=== PATIENT | male | born 1995 | race Caucasian/White ===

== ENCOUNTER 2017-02-09 20:12 | Inpatient (IN) ==
[2017-02-09] MEDS ORDERED: NORCURON IV ONE (20:40)
[2017-02-09 20:44] LABS: MANUAL DIFF NEEDED? NO
[2017-02-09 20:46] LABS: BASO% 0.7 % (0.0-0.8); EOS# 0.47 X1000 (0.0-0.7); EOS% 3.1 % (0.0-10.0); HEMATOCRIT 43.5 % (42.0-52.0); HEMOGLOBIN 15.1 g/dL (14.0-18.0); IMM GRAN# 0.13 X1000 (0.0-0.04); IMM GRAN% 0.9 % (0.0-0.5); LYMPH# 6.92 X1000 (1.2-3.4); LYMPH% 45.6 % (20.5-51.1); MCH 32.2 PG (27-31); MCHC 34.7 g/dL (33-37); MCV 92.8 FL (81-99); MONO# 1.16 X1000 (0.11-0.59); MONO% 7.6 % (1.7-9.3); NEUT% 42.1 % (42.2-75.2); PLT 235 X1000 (130-400); RBC 4.69 XMIL (4.7-6.1)
[2017-02-09] MEDS ORDERED: STERILE WATER INJ. ONE (20:52)
[2017-02-09] MEDS ORDERED: NS 1,000 ML IV ONE ×3 (20:58→22:07)
[2017-02-09] MEDS ORDERED: NS 1,000 ML ONE (21:00)
[2017-02-09 21:01] LABS: INR 1.07 (0.86-1.15); PROTIME 14.2 Seconds (12.1-15.5)
[2017-02-09 21:02] LABS: PTT PL 27.1 Seconds (22.6-43.9)
[2017-02-09 21:04] LABS: BE -0.8 mmoll (-3.0-3.0); BLOOD TYPE ARTERIAL; DRAW SITE R BRACHIAL; METHB 1.3 % (0.0-1.5); O2(CT) 20.7 mL/dL (15.0-23.0); PO2(98.6) 184 mmHg (60-100); SAMPLE BLOOD; SAO2 99.7 % (95.0-100.0); SRATE 14 BPM; THB 15.1 g/dL (11.5-17.4); TVOL 600 mL; pH(98.6) 7.28 (7.35-7.45)
[2017-02-09 21:04] LABS: AGAP 15; ALBUMIN 4.3 g/dL (3.5-5.0); ALKALINE PHOSPHATASE 95 U/L (32-122); BUN 7 mg/dL (8-22); CALCIUM 8.8 mg/dL (8.8-10.2); CHLORIDE 96 mmol/L (98-107); CK PROFILE 111 U/L (24-204); COSMO 285; GOT 22 U/L (10-34); GPT 15 U/L (10-44); MAGNESIUM 2.8 mg/dL (1.5-2.7); POTASSIUM 3.2 mmol/L (3.5-5.1); SODIUM 136 mmol/L (136-145); TCO2 25 mmol/L (25-35); TOTAL PROTEIN 6.4 g/dL (6.3-8.3)
--- NOTE | 2017-02-09 21:29 | Diag Imaging Result Document ---
PROCEDURE NAME: CHEST-PORTABLE - 02/09/2017 AP PORTABLE CHEST: The endotracheal tube remains with its tip about the thoracic inlet. The heart size and pulmonary vascularity are within normal limits. The lungs are clear. There are no previous studies available for comparison. IMPRESSION: No acute disease.
[2017-02-09 21:38] LABS: ALLEN TEST NO; MODALITY VENTILATOR; PCO2(98.6) 58 mmHg (35-45)
[2017-02-09 21:54] LABS: BILIRUBIN URINE NEGATIVE (NEGATIVE); BLOOD URINE 4+ (NEGATIVE); CLARITY VERY CLOUDY (CLEAR); COLOR YELLOW; PROTEIN URINE 1+(30 mg/dL) mg/dL (NEGATIVE); URINE CULTURE PL NEEDED? YES; URINE EPITHELIAL CELLS <10 /HPF (<10); URINE RBC 20-40 /HPF (<10); URINE SOURCE CLEAN CATCH; URINE WBC <10 /HPF (<10); UROBILINOGEN URINE NORMAL
[2017-02-09 21:55] LABS: LEUKOCYTES URINE TRACE (NEGATIVE); NITRITE URINE NEGATIVE (NEGATIVE)
[2017-02-09 21:57] LABS: UR AMPHETAMINES QUAL NONE DETECTED (NONE DETECT); UR BARBITUATES QUAL NONE DETECTED (NONE DETECT); UR BENZODIAZEPIN QUAL PRESUMPTIVE POSITIVE (NONE DETECT); UR CANNABINOIDS QUAL PRESUMPTIVE POSITIVE (NONE DETECT); UR COCAINE QUAL NONE DETECTED (NONE DETECT); UR MDMA QUAL NONE DETECTED (NONE DETECT); UR METHADONE QUAL NONE DETECTED (NONE DETECT); UR METHAMPHETAMINE QUAL PRESUMPTIVE POSITIVE (NONE DETECT); UR OPIATES QUAL PRESUMPTIVE POSITIVE (NONE DETECT); UR OXYCODONE QUAL NONE DETECTED (NONE DETECT); UR PCP QUAL NONE DETECTED (NONE DETECT); UR TCA QUAL NONE DETECTED (NONE DETECT)
--- NOTE | 2017-02-09 22:04 | Diag Imaging Result Document ---
PROCEDURE NAME: HEAD W/O CONTRAST - 02/09/2017 CT OF THE HEAD WITHOUT CONTRAST: FINDINGS: There is no evidence of mass effect, bleed, or abnormal extra-axial fluid collection. The visualized paranasal sinuses are clear. There are no acute bony abnormalities. There are no previous studies. IMPRESSION: No evidence of acute disease.
[2017-02-09] MEDS ORDERED: ZOFRAN IV PRN (22:07)
--- NOTE | 2017-02-09 22:14 | PROVIDER DOCUMENTATION ---
This chart was entered by Jeri Franco Scribe, acting as scribe for Frank Ching DO. [id number] Abuse/Overdose - General Chief Complaint: Overdose Stated Complaint: UNRESPONSIVE, POSSIBLE OD Time Seen by Provider: 02/09/17 20:14 Source: family, EMS Allergies/Adverse Reactions: Allergies Allergy/AdvReac Type Severity Reaction Status Date / Time UNKNOWN, PT UNRESPONSIVE AdvReac Unknown Uncoded 02/09/17 20:28 Home Medications: Home Medication List Medication Instructions Recorded Confirmed Last Taken Type Unobtainable [Home Meds 02/09/17 02/09/17 Unknown History Unobtainable] - History of Present Illness-Drug/Alcohol Nature of Presenting Problem: 22 Y/O M presents to ED with Overdose. Pt was brought in by private car, Pt gf told EMS that they stopped in [place] at a gas station, and was acting funny when he came back to the car, and then took something, a little while after pt lips began to turn blue . States pt was supposed to go to rehab and his drug of choice was heroine. Pt is unresponsive on arrival to ED. Pt also smelled like ETOH. This episode of drinking or use began:: this evening Severity: reports: severe Situational problems related to:: reports: N/A Psychiatric Complaints: reports: ingestion - Substance Abuse Substance Use: reports: other (heroine) - Overdose Suicide Risk Assessment: male sex Review of Systems - Adult - REVIEW OF SYSTEMS - ADULT Constitutional: denies: chills, fever Past History - Adult - PAST MEDICAL HISTORY-ADULT Review of Records: reports: Old Records Reviewed, Nursing Assessment Review, Medications Reviewed, Social history reviewed & non-contributory. - SOCIAL HISTORY Substance Use: other (heroine) Physical Exam-General - PHYSICAL EXAM-ADULT Initial Vital Signs Reviewed: Yes - CONSTITUTIONAL General Appearance: severe distress. negative: appears well, alert - HEAD, EARS, NOSE, MOUTH & THROAT HENMT: pharynx normal, other (cyanosis) - NECK Neck: non-tender, full range of motion, supple, normal inspection - RESPIRATORY Respiratory: chest non-tender, lungs clear, normal breath sounds - CARDIOVASCULAR Cardiovascular: normal peripheral pulses, regular rate, rhythm - GASTROINTESTINAL (ABDOMEN) Abdominal Exam: normal bowel sounds, non tender, soft - LYMPHATIC Lymphatic: no adenopathy - SKIN Integumentary: cyanosis (lips) Progress - PLAN OF CARE/RESULTS Progress/Plan/Lab Results: Vital Signs - 8 hr 02/09/17 20:12 02/09/17 21:35 02/09/17 22:10 Temperature 98.2 F Pulse Rate 104 H 78 Respiratory Rate 20 18 Blood Pressure 150/86 135/89 O2 Sat by Pulse Oximetry 100 100 100 Laboratory Results - last 24 hr 02/09/17 02/09/17 02/09/17 20:30 20:30 20:30 WBC RBC Hgb Hct MCV MCH MCHC RDW Std Deviation Plt Count MPV Immature Gran % (Auto) Neut % (Auto) Lymph % (Auto) Cottle % (Auto) Eos % (Auto) Baso % (Auto) Immature Gran # (Auto) Neut # (Auto) Lymph # (Auto) Cottle # (Auto) Eos # (Auto) Baso # (Auto) PT INR APTT (Factor Assay) Specimen Type Sample Site pH pCO2 pO2 HCO3 Base Excess Oxyhemoglobin ABG O2 Sat (Calculated) ABG O2 Saturation ABG Carboxyhemoglobin ABG Methemoglobin Juan Jose Test A-a O2 Difference Total Hemoglobin Lactate Blood Gas Modality Spontaneous Rate FiO2 % Tidal Volume PEEP Sodium 136 Potassium 3.2 L Chloride 96 L Carbon Dioxide 25 Anion Gap 15 BUN 7 L Creatinine 1.3 H Estimated GFR/1.73 m2 > 60 BUN/Creatinine Ratio 5 Glucose 361 H Calculated Osmolality 285 Calcium 8.8 Magnesium 2.8 H Total Bilirubin 0.40 AST 22 ALT 15 Alkaline Phosphatase 95 Creatine Kinase 111 Troponin T < 0.010 Bdh-S-Livbmpqcisi Pept 226 H Total Protein 6.4 Albumin 4.3 Globulin 2.0 Albumin/Globulin Ratio 2.0 Plasma Lactate Urine Source Urine Color Urine Clarity Urine pH Ur Specific Anderson Urine Protein Urine Ketones Urine Blood Urine Nitrite Urine Bilirubin Urine Urobilinogen Urine Microscopic RBC Urine WBC Urine Microscopic WBC Ur Epithelial Cells Urine Bacteria Urine Glucose Urine Opiates Screen Ur Oxycodone Screen Urine Methadone Screen Ur Barbituates Screen Ur Tricyclics Screen Ur Phencyclidine Scrn Ur Amphetamines Screen U Methamphetamines Scrn Urine MDMA Screen U Benzodiazepines Scrn Urine Cocaine Screen U Cannabinoids Screen Plasma/Serum Ethyl Alc 02/09/17 02/09/17 02/09/17 20:30 20:30 20:30 WBC 15.18 H RBC 4.69 L Hgb 15.1 Hct 43.5 MCV 92.8 MCH 32.2 H MCHC 34.7 RDW Std Deviation 12.1 Plt Count 235 MPV 11.0 H Immature Gran % (Auto) 0.9 H Neut % (Auto) 42.1 L Lymph % (Auto) 45.6 Cottle % (Auto) 7.6 Eos % (Auto) 3.1 Baso % (Auto) 0.7 Immature Gran # (Auto) 0.13 H Neut # (Auto) 6.39 Lymph # (Auto) 6.92 H Cottle # (Auto) 1.16 H Eos # (Auto) 0.47 Baso # (Auto) 0.11 PT 14.2 INR 1.07 APTT (Factor Assay) 27.1 Specimen Type Sample Site pH pCO2 pO2 HCO3 Base Excess Oxyhemoglobin ABG O2 Sat (Calculated) ABG O2 Saturation ABG Carboxyhemoglobin ABG Methemoglobin Juan Jose Test A-a O2 Difference Total Hemoglobin Lactate Blood Gas Modality Spontaneous Rate FiO2 % Tidal Volume PEEP Sodium Potassium Chloride Carbon Dioxide Anion Gap BUN Creatinine Estimated GFR/1.73 m2 BUN/Creatinine Ratio Glucose Calculated Osmolality Calcium Magnesium Total Bilirubin AST ALT Alkaline Phosphatase Creatine Kinase Troponin T Blh-S-Ukfunuwcqge Pept Total Protein Albumin Globulin Albumin/Globulin Ratio Plasma Lactate Urine Source Urine Color Urine Clarity Urine pH Ur Specific Anderson Urine Protein Urine Ketones Urine Blood Urine Nitrite Urine Bilirubin Urine Urobilinogen Urine Microscopic RBC Urine WBC Urine Microscopic WBC Ur Epithelial Cells Urine Bacteria Urine Glucose Urine Opiates Screen Ur Oxycodone Screen Urine Methadone Screen Ur Barbituates Screen Ur Tricyclics Screen Ur Phencyclidine Scrn Ur Amphetamines Screen U Methamphetamines Scrn Urine MDMA Screen U Benzodiazepines Scrn Urine Cocaine Screen U Cannabinoids Screen Plasma/Serum Ethyl Alc 02/09/17 02/09/17 02/09/17 20:30 20:30 20:45 WBC RBC Hgb Hct MCV MCH MCHC RDW Std Deviation Plt Count MPV Immature Gran % (Auto) Neut % (Auto) Lymph % (Auto) Cottle % (Auto) Eos % (Auto) Baso % (Auto) Immature Gran # (Auto) Neut # (Auto) Lymph # (Auto) Cottle # (Auto) Eos # (Auto) Baso # (Auto) PT INR APTT (Factor Assay) Specimen Type ARTERIAL Sample Site R BRACHIAL pH 7.28 L pCO2 58 H* pO2 184 H HCO3 24.2 Base Excess -0.8 Oxyhemoglobin 95.8 ABG O2 Sat (Calculated) 20.7 ABG O2 Saturation 99.7 ABG Carboxyhemoglobin 2.60 H ABG Methemoglobin 1.3 Juan Jose Test NO A-a O2 Difference 29.0 Total Hemoglobin 15.1 Lactate 2.90 H Blood Gas Modality VENTILATOR Spontaneous Rate 14 FiO2 % 40.0 Tidal Volume 600 PEEP 5.0 Sodium Potassium Chloride Carbon Dioxide Anion Gap BUN Creatinine Estimated GFR/1.73 m2 BUN/Creatinine Ratio Glucose Calculated Osmolality Calcium Magnesium Total Bilirubin AST ALT Alkaline Phosphatase Creatine Kinase Troponin T [id number]-Usygbdaxkyn Pept Total Protein Albumin Globulin Albumin/Globulin Ratio Plasma Lactate Urine Source CLEAN CATCH Urine Color YELLOW Urine Clarity VERY CLOUDY A Urine pH 8.0 Ur Specific Anderson 1.010 Urine Protein 1+(30 mg/dL) A Urine Ketones NEGATIVE Urine Blood 4+ Urine Nitrite NEGATIVE Urine Bilirubin NEGATIVE Urine Urobilinogen NORMAL Urine Microscopic RBC 20-40 A Urine WBC TRACE A Urine Microscopic WBC <10 Ur Epithelial Cells <10 Urine Bacteria 3+ Urine Glucose 1+(100 mg/dL) A Urine Opiates Screen PRESUMPTIVE POSITIVE A Ur Oxycodone Screen NONE DETECTED Urine Methadone Screen NONE DETECTED Ur Barbituates Screen NONE DETECTED Ur Tricyclics Screen NONE DETECTED Ur Phencyclidine Scrn NONE DETECTED Ur Amphetamines Screen NONE DETECTED U Methamphetamines Scrn PRESUMPTIVE POSITIVE A Urine MDMA Screen NONE DETECTED U Benzodiazepines Scrn PRESUMPTIVE POSITIVE A Urine Cocaine Screen NONE DETECTED U Cannabinoids Screen PRESUMPTIVE POSITIVE A Plasma/Serum Ethyl Alc 02/09/17 21:00 WBC RBC Hgb Hct MCV MCH MCHC RDW Std Deviation Plt Count MPV Immature Gran % (Auto) Neut % (Auto) Lymph % (Auto) Cottle % (Auto) Eos % (Auto) Baso % (Auto) Immature Gran # (Auto) Neut # (Auto) Lymph # (Auto) Cottle # (Auto) Eos # (Auto) Baso # (Auto) PT INR APTT (Factor Assay) Specimen Type Sample Site pH pCO2 pO2 HCO3 Base Excess Oxyhemoglobin ABG O2 Sat (Calculated) ABG O2 Saturation ABG Carboxyhemoglobin ABG Methemoglobin Juan Jose Test A-a O2 Difference Total Hemoglobin Lactate Blood Gas Modality Spontaneous Rate FiO2 % Tidal Volume PEEP Sodium Potassium Chloride Carbon Dioxide Anion Gap BUN Creatinine Estimated GFR/1.73 m2 BUN/Creatinine Ratio Glucose Calculated Osmolality Calcium Magnesium Total Bilirubin AST ALT Alkaline Phosphatase Creatine Kinase Troponin T [id number]-[id number]-Gnivvjckyqa Pept Total Protein Albumin Globulin Albumin/Globulin Ratio Plasma Lactate 3.6 H Urine Source Urine Color Urine Clarity Urine pH Ur Specific Anderson Urine Protein Urine Ketones Urine Blood Urine Nitrite Urine Bilirubin Urine Urobilinogen Urine Microscopic RBC Urine WBC Urine Microscopic WBC Ur Epithelial Cells Urine Bacteria Urine Glucose Urine Opiates Screen Ur Oxycodone Screen Urine Methadone Screen Ur Barbituates Screen Ur Tricyclics Screen Ur Phencyclidine Scrn Ur Amphetamines Screen U Methamphetamines Scrn Urine MDMA Screen U Benzodiazepines Scrn Urine Cocaine Screen U Cannabinoids Screen Plasma/Serum Ethyl Alc Orders Category Date Time Status Admit - [facility] Routine AdmDCTranf 02/09/17 22:07 Ordered Activity - Strict Bedrest ORDERED Care 02/09/17 22:07 Active Call Admitting on Arrival AT ADMISSION Care 02/09/17 22:08 Active Cardiac Monitoring DIRECTED Care 02/09/17 20:25 Active Hall Cath Insertion ORDERED Care 02/09/17 21:22 Active Intubate Patient NOW Care 02/09/17 20:20 Active Neurological Check ORDERED Care 02/09/17 22:07 Active Oxygen Therapy- ED Nursing DIRECTED Care 02/09/17 20:25 Active Saline Loc DIRECTED Care 02/09/17 22:07 Active Saline Loc NOW Care 02/09/17 20:25 Active Vital Signs Order ORDERED Care 02/09/17 22:07 Active NPO Diet 02/09/17 20:43 Active NPO Diet 02/10/17 00:01 Active CHEST-PORTABLE [RAD] Stat Exams 02/09/17 20:25 Completed HEAD W/O CONTRAST [CT] Stat Exams 02/09/17 20:26 Draft ABG [RESP] Routine Lab 02/09/17 20:45 Completed ALCOHOL BLOOD Stat Lab 02/09/17 20:30 Completed CBC WITH ELECTRONIC DIFF [HEME] Stat Lab 02/09/17 20:30 Completed CK PROFILE [SP CHEM] Stat Lab 02/09/17 20:30 Completed COMPREHENSIVE METABOLIC PANEL [CHEM] Stat Lab 02/09/17 20:30 Completed LACTATE, PLASMA [CHEM] Stat Lab 02/09/17 21:00 Completed MAGNESIUM [CHEM] Stat Lab 02/09/17 20:30 Completed PRO B-NATRIURETIC PEPTIDE Stat Lab 02/09/17 20:30 Completed [address]IME WITH INR PL [COAG] Stat Lab 02/09/17 20:[address] [COAG] Stat Lab 02/09/17 20:30 Completed TROPONIN T Stat Lab 02/09/17 20:[address] W/POSS RFLX CULT [URINALYSIS] Stat Lab 02/09/17 20:30 Completed URINE CULTURE [RM] Routine Lab 02/09/17 21:55 Or[address] DRUG SCREEN [address] Stat Lab 02/09/17 20:30 Completed 0.9% Sodium Chloride Inj [Ns] 1,000 ml Med 02/09/17 21:00 Discontinued .ROUTE As Directed 0.9% Sodium Chloride Inj [Ns] 1,000 ml Med 02/09/17 20:59 Active IV 125 mls/hr 0.9% Sodium Chloride Inj [Ns] 1,000 ml Med 02/09/17 22:07 Active IV 150 mls/hr 0.9% Sodium Chloride Inj [Ns] 1,000 ml Med 02/09/17 20:58 Discontinued IV 999 mls/hr Ondansetron [Zofran] Med 02/09/17 22:07 Active 4 mg IV Q4H PRN PRN Propofol [Diprivan 1%] Med 02/09/17 20:40 Active 1,000 mg in 100 ml IV As Directed Vecuronium [Norcuron] Med 02/09/17 20:40 Discontinued 10 mg IV NOW ONE Water, Sterile Inj [Sterile Water Inj] Med 02/09/17 20:52 Discontinued 10 ml .ROUTE .STK-MED ONE Ventilator Order Stat Oth 02/09/17 20:20 Active EKG [EKG] Stat Ther 02/09/17 20:25 Ordered Transfer/Admit Order [TRANSFER] Routine Transfer 02/09/17 22:10 Ordered 20:40 PT WOKE UP AND SAT STRAIGHT UP IN ED 20:43 RESTRAINTS ORDERED AND APPLIED Result Diagrams: 02/09/17 20:30 02/09/17 20:30 - EKG 1 Time of EKG reading by physician:: 21:38 EKG Read and Signed by:: Frank Ching EKG Interpretation (*Must complete 3 of following elements*): Normal Rate: 88 Rhythm: NSR Comments: Normal ECG - CT/MRI 1 CT Study: Head Impression: Normal CT Results: NAD - CONSULTS/PCP/HOSPITALIST Notification #1 *Consult/PCP/Hospitalist*: Time Discussed: 22:03 Reason/Comments: Admittance Consult Disposition: Admit (Admit Accepted) Procedures - INTUBATION Time of Intubation: 20:20 Mallampati Class: 1 Intubation Method: orotracheal Equipment: Other (MAC 3) Tube Size (cm): 8.0 Pretreated with 100% Oxygen?: Yes Breath Sounds after Intubation: equal ETT Primary Tube Confirmation: Capnometry CO2 Change, Direct Visualization, Chest Rise and Fall, Tube placement verified on XRAY Intubation Complications: no complications Vent Settings: See Respiratory Therapy Notes Departure - Departure Time of Disposition Decision: 22:05 DIAGNOSIS: Multiple drug overdose Disposition: ADMITTED INPATIENT 09 Certified Medical Emergency: Emergent Condition: Critical Additional Freetext Instructions: ED Follow Up Instructions: You have been treated by a care provider in the Emergency Department. These instructions are being provided to you so you can have an understanding of how to care for yourself upon discharge. Upon discharge from the Emergency Department, you are responsible for making arrangements for follow-up care by a physician of your choice. Take all prescribed medications as directed. Return to the Emergency Department immediately for any new or worsening symptoms. You may call the Physician Referral phone number at [phone] to obtain a list of Physicians who are taking new patients. Referrals and Follow-Ups: None,PCP [Primary Care Provider] - This chart was documented by the indicated scribe, (Jeri Franco Scribe) and accurately reflects the services I performed and decisions made by me, Frank Ching DO, as attested by the provider's signature.
[2017-02-10] MEDS: ROCEPHIN 1 GM/NS 1 GM/50 ML IVPB IV SCH ×3 (01:10→23:12)
[2017-02-10] MEDS: CLINDAMYCIN 900 MG/NS 900 MG/50 ML IVPB IV SCH ×6 (01:10→23:12)
[2017-02-10] MEDS: DIPRIVAN 1% 1,000 MG/100 ML BOTTLE IV SCH ×2 (02:14→06:04)
[2017-02-10 06:08] LABS: BE 0.5 mmoll (-3.0-3.0); BLOOD TYPE ARTERIAL; DRAW SITE L BRACHIAL; METHB 1.5 % (0.0-1.5); O2(CT) 19.5 mL/dL (15.0-23.0); PCO2(98.6) 28 mmHg (35-45); PO2(98.6) 161 mmHg (60-100); SAMPLE BLOOD; SAO2 99.5 % (95.0-100.0); SRATE 18 BPM; THB 14.2 g/dL (11.5-17.4); TVOL 600 mL; pH(98.6) 7.51 (7.35-7.45)
[2017-02-10 06:19] LABS: MODALITY VENTILATOR
[2017-02-10 06:20] LABS: ALLEN TEST NO
--- NOTE | 2017-02-10 06:30 | EKG Report ---
Test Performed on : 02/09/2017 9:38:15 PM Test Reason : CHEST PAIN Blood Pressure : / mmHG Vent. Rate : 088 BPM Atrial Rate : 088 BPM P-R Int : 142 ms QRS Dur : 094 ms QT Int : 388 ms P-R-T Axes : 082 079 069 degrees QTc Int : 469 ms Normal sinus rhythm. Normal ECG No previous ECGs available Unconfirmed Result
[2017-02-10 06:33] LABS: MANUAL DIFF NEEDED? NO
[2017-02-10 06:57] LABS: BASO% 0.4 % (0.0-0.8); EOS# 0.15 X1000 (0.0-0.7); EOS% 1.9 % (0.0-10.0); HEMATOCRIT 40.3 % (42.0-52.0); HEMOGLOBIN 14.4 g/dL (14.0-18.0); IMM GRAN# 0.03 X1000 (0.0-0.04); IMM GRAN% 0.4 % (0.0-0.5); LYMPH# 2.23 X1000 (1.2-3.4); LYMPH% 28.7 % (20.5-51.1); MCH 31.9 PG (27-31); MCHC 35.7 g/dL (33-37); MCV 89.2 FL (81-99); MONO# 0.57 X1000 (0.11-0.59); MONO% 7.3 % (1.7-9.3); MPV 10.6 FL (7.4-10.4); NEUT% 61.3 % (42.2-75.2); PLT 137 X1000 (130-400); RBC 4.52 XMIL (4.7-6.1)
[2017-02-10 07:22] LABS: AGAP 15; ALBUMIN 3.9 g/dL (3.5-5.0); ALKALINE PHOSPHATASE 83 U/L (32-122); BUN 8 mg/dL (8-22); CALCIUM 9.1 mg/dL (8.8-10.2); CHLORIDE 109 mmol/L (98-107); COSMO 282; GOT 16 U/L (10-34); GPT 13 U/L (10-44); SODIUM 143 mmol/L (136-145); TCO2 20 mmol/L (25-35)
--- NOTE | 2017-02-10 07:56 | Diag Imaging Result Document ---
PROCEDURE NAME: CHEST-PORTABLE - 02/10/2017 PORTABLE CHEST X-RAY: COMPARISON: 02/09/2017. FINDINGS: Stable endotracheal tube in good position at T3. The lungs are clear and the heart size is normal. IMPRESSION: No acute disease.
[2017-02-10] MEDS: OFIRMEV 1000 MG/ISOTONIC SOLN 1,000 MG/100 ML BOTTLE IV SCH ×3 (08:46→20:21)
[2017-02-10] MEDS ORDERED: CHLORASEPTIC SPRAY MT PRN (09:37)
[2017-02-10] MEDS ORDERED: KLOR-CON PO ONE (10:58)
--- NOTE | 2017-02-10 13:21 | HISTORY AND PHYSICAL ---
CHIEF COMPLAINT: Unresponsive. HISTORY OF PRESENT ILLNESS: This is a 22-year-old male who presented to the emergency room via POV with friends stating that they had stopped at a gas station in [place] and that when the patient left the car, when he came back he was acting funny. Sometime later, his lips began to turn blue and he became unresponsive. According to the chart, on arrival the patient was apneic, pale, with warm skin. He was immediately intubated with ventilations assisted, subsequently admitted to ICU. At the time of my examination, he is pending extubation. He is awake and alert. He is writing notes to his parents requesting pain medication. He will nod yes and no to questions asked. According to the parents, the patient does have a long history of drug abuse, with heroin being his drug of choice. The mother stated that this was his 2nd overdose this week, the first being at [place] She states he has been intubated more than once in the past for drug overdose. PAST MEDICAL HISTORY: Drug abuse with prior overdose requiring intubation. PAST SURGICAL HISTORY: Denies. SOCIAL HISTORY: Positive for illicit drug use. He may live with his grandmother. He has recently been put out of his parents' house. ALLERGIES: No known drug allergies. HOME MEDICATIONS: None. REVIEW OF SYSTEMS: Unable to obtain. PHYSICAL EXAMINATION: GENERAL: This is a 22-year-old male who is sitting up in the bed, intubated, awake, and alert. VITAL SIGNS: Blood pressure is 148/94 with a heart rate of 72, respirations 18, temperature 98 degrees, with oxygen saturations of 99% to 100%. HEENT: Head is normocephalic, atraumatic. Pupils equal, round, react to light. EOMs are intact. Sclerae are anicteric. Mucous membranes are dry. NECK: Supple, with trachea midline. CARDIOVASCULAR: Regular rate and rhythm. S1 and S2 appreciated. PULMONARY: His breath sounds are clear. Chest does rise and fall symmetrically with respiration. GASTROINTESTINAL: Soft, nontender, nondistended, with bowel sounds in all 4 quadrants. MUSCULOSKELETAL: Good range of motion of joints. EXTREMITIES: No clubbing, cyanosis, or edema. Pulses are palpable x4. NEUROLOGIC: He is awake and alert. He does nod yes and no. He attempts to mouth words around the ET tube, which are not understood. He does write notes. He does follow commands. DIAGNOSTICS: WBC is 15.18 with hemoglobin 15.1, hematocrit 43.5, and platelets of 235,000. INR is 1.07. Sodium 136, potassium 3.2 ,BUN 7, creatinine 1.3, with a glucose of 361. Troponin is less than 0.010. Urine drug screen is positive for opiates, methamphetamines, benzodiazepines, and cannabinoids. CT of the head revealed no acute processes. Chest x-ray revealed no acute disease. ASSESSMENT AND PLAN: 1. Overdose with presumed heroin. 2. Acute unresponsiveness. This has resolved. 3. Resolved. 4. Leukocytosis. This could be reactive, although the patient, according to the mother, has overdosed and required treatment earlier in the week. He was given clindamycin in the emergency room. We will give Rocephin q.12 hours and follow. 5. Hypokalemia. We will treat and trend laboratories. 6. History of drug abuse. Aware. Further treatments pending hospital course. Dictated by MENG Wesley for Low French MD cc: MENG Wesley MD
[2017-02-11] MEDS: CLINDAMYCIN 900 MG/NS 900 MG/50 ML IVPB IV SCH (05:15)
[2017-02-11 06:39] LABS: HEMATOCRIT 46.3 % (42.0-52.0); HEMOGLOBIN 16.1 g/dL (14.0-18.0); MCH 31.6 PG (27-31); MCHC 34.8 g/dL (33-37); MCV 90.8 FL (81-99); MPV 11.2 FL (7.4-10.4); RBC 5.1 XMIL (4.7-6.1)
[2017-02-11 06:57] LABS: AGAP 9; ALBUMIN 4.6 g/dL (3.5-5.0); ALKALINE PHOSPHATASE 99 U/L (32-122); BUN 6 mg/dL (8-22); CALCIUM 9.7 mg/dL (8.8-10.2); CHLORIDE 102 mmol/L (98-107); COSMO 275; GOT 18 U/L (10-34); GPT 13 U/L (10-44); POTASSIUM 4.4 mmol/L (3.5-5.1); SODIUM 139 mmol/L (136-145); TCO2 27 mmol/L (25-35); TOTAL PROTEIN 7.1 g/dL (6.3-8.3)
[2017-02-11 09:41] VITALS: BP 121/76
--- NOTE | 2017-02-11 12:23 | DISCHARGE SUMMARY ---
ADMISSION DATE: 02/09/2017 DISCHARGE DATE: 02/11/2017 DISCHARGE DIAGNOSES: 1. Acute respiratory failure requiring mechanical intubation, resolved. 2. Acute hypercapnic failure, resolved. 3. Elevated lactate due to acute stress reaction, resolved. 4. Hypokalemia, resolved. 5. Acute intentional drug use causing respiratory failure, stable. 6. Leukocytosis, resolved. 7. Chronic drug use. CONSULTATIONS: None. PROCEDURES: None. BRIEF HOSPITAL COURSE: Patient is a 22-year-old male, who unfortunately has just been admitted to the hospital. The patient was apparently intubated last week secondary to a very similar situation. At this time he presented to the emergency department. The friends noted that he became sort of acting strange, became unresponsive and turned blue. They called the ambulance. He was brought to the emergency department and initially intubated. Thankfully, he extubated without any difficulty. He was watched overnight. His respiratory status remained stable. He is awake, alert. He is in no distress. DISPOSITION: Fifty minutes was spent in discussion with Mr. Méndez, as well as his father who is at the bedside, regarding drug use, drug abuse, due to intentional and unintentional overdose which unfortunately still equals . Discussed with patient that he was very dominick the last 2 times, but that he should not continue pressing his luck. Discussed with him further inpatient drug rehab through [facility] versus [place] versus outpatient follow up. Discussed with him Suboxone versus no medications. Unfortunately, Mr. Méndez has been to [place] twice. He has been to another inpatient facility, he has been to outpatient treatment and he continues to falter. Discussed with he and his father that Suboxone certainly may be in his best interest to give him a "safety net" to allow him time to change his psychosocial issues. Attempted to answer all their questions. cc: Low French MD
== END 2017-02-11 10:24 | disposition home or self-care (01) ==
LOC: P.ED 20:12 → P.ICU 20:12 → OBSVTOIN 22:56 → P.ICU 23:32
PROVIDERS: ATTEND Family Medicine